=== PATIENT | female | born 1995 | race Hispanic/Latino ===

== ENCOUNTER 2017-02-15 09:46 | Emergency (ER) | payer OTHER ==
[~2017-02-15] VITALS: Ht 157.5 cm; Wt 65.8 kg
[2017-02-15] MEDS ORDERED: KETOROLAC 30 MG/ML VIAL (J1885) IV ONE (12:15)
[2017-02-15] MEDS ORDERED: ONDANSETRON 4MG/2ML VIAL (J2405) IV ONE (12:15)
[2017-02-15] MEDS ORDERED: NS 1,000 ML IV ONE (12:15)
[2017-02-15 12:42] LABS: CONTROL LINE UCG INT CTR LINE PRESENT
[2017-02-15 12:44] LABS: BASO % 0.6 % (0.0-1.0); EOS # 0.3 K/mm3 (0.0-0.50); EOS % 5.2 % (0.0-3.0); LARGE UNSTAINED CELL # 0.1 K/mm3 (0.0-0.4); LARGE UNSTAINED CELL % 1.7 % (0.0-4.0); LYMPH # 1.9 K/mm3 (1.5-6.5); MEAN CORPUSCULAR HEMOGLOBIN 29.8 pg (27.0-33.0); MEAN CORPUSCULAR HGB CONC 32.1 g/dl (32.0-36.5); MEAN CORPUSCULAR VOLUME 92.8 fl (80.0-96.0); MONO # 0.4 K/mm3 (0.0-0.8); MONO % 6.4 % (0.0-5.0); NEUTROPHILS # 2.8 K/mm3 (1.8-7.7); NEUTROPHILS % 52.1 % (36.0-66.0); PLATELET COUNT, AUTOMATED 216 k/mm3 (150-450); WHITE BLOOD COUNT 5.5 K/mm3 (4.0-10.0)
[2017-02-15 13:10] LABS: ALBUMIN 3.6 GM/DL (3.2-5.2); ALBUMIN/GLOBULIN RATIO 0.97 (1.00-1.93); ALKALINE PHOSPHATASE 114 U/L (45-117); ALT/SGPT 29 U/L (12-78); ANION GAP 6 MEQ/L (8-16); AST/SGOT 24 U/L (15-37); BILIRUBIN,DIRECT 0.2 MG/DL (0.0-0.2); BILIRUBIN,TOTAL 0.7 MG/DL (0.2-1.0); BLOOD UREA NITROGEN 12 MG/DL (7-18); CALCIUM LEVEL 8.3 MG/DL (8.5-10.1); CARBON DIOXIDE LEVEL 28 MEQ/L (21-32); CHLORIDE LEVEL 107 MEQ/L (98-107); CREATININE FOR GFR 0.57 MG/DL (0.55-1.02); GLUCOSE, FASTING 84 MG/DL (70-105); POTASSIUM SERUM 3.5 MEQ/L (3.5-5.1); SODIUM LEVEL 141 MEQ/L (136-145); TOTAL PROTEIN 7.3 GM/DL (6.4-8.2)
[2017-02-15] MEDS ORDERED: METOCLOPRAMIDE INJ 10MG/2ML VIAL (J2765) IV ONE (14:00)
[2017-02-15] MEDS ORDERED: ZOFR4TAB3 PO (14:27)
[2017-02-15 14:38] VITALS: BP 111/63
== END 2017-02-15 14:39 | disposition home or self-care (01) ==
LOC: M ED 11:52
DX: E86.0 Dehydration (principal); R10.84 Generalized abdominal pain; R19.7 Diarrhea, unspecified; R11.2 Nausea with vomiting, unspecified; Z90.49 Acquired absence of other specified parts of digestive tract; Z90.89 Acquired absence of other organs; Z98.84 Bariatric surgery status
CPT/HCPCS: 36415; 80048; 80076; 81001; 83690; 84703; 85025; 96374; 96375; 99283; J1885; J2405; J2765

== ENCOUNTER 2017-07-04 20:11 | Emergency (ER) | payer OTHER ==
[~2017-07-04] VITALS: Ht 157.5 cm; Wt 70.5 kg
[~2017-07-04 20:11] MED LIST: ZOFR4TAB3 PO
[2017-07-04] MEDS ORDERED: NEXP1IMP SC (20:33)
[2017-07-04] MEDS ORDERED: NS 1,000 ML IV ONE (21:45)
[2017-07-04] MEDS ORDERED: KETOROLAC 30 MG/ML VIAL (J1885) IV ONE (21:45)
[2017-07-04 22:03] LABS: BASO % 0.5 % (0.0-1.0); EOS # 0.5 10^3/uL (0.0-0.50); EOS % 5.7 % (0.0-3.0); IMMATURE GRANULOCYTE % 0.2 % (0-0); LYMPH # 1.7 10^3/uL (1.5-6.5); LYMPH % 21.4 % (24.0-44.0); MEAN CORPUSCULAR HEMOGLOBIN 29.1 pg (27.0-33.0); MEAN CORPUSCULAR HGB CONC 32.8 g/dl (32.0-36.5); MEAN CORPUSCULAR VOLUME 88.8 fl (80.0-96.0); MONO # 0.6 10^3/uL (0.0-0.8); MONO % 7.4 % (0.0-5.0); NEUTROPHILS # 5.3 10^3/uL (1.8-7.7); NEUTROPHILS % 64.8 % (36.0-66.0); PLATELET COUNT, AUTOMATED 249 10^3/uL (150-450); RED CELL DISTRIBUTION WIDTH 12.8 % (11.5-14.5); WHITE BLOOD COUNT 8.1 10^3/uL (4.0-10.0)
[2017-07-04 22:05] LABS: ADD MORPHOLOGY? NO
[2017-07-04 22:21] LABS: ANION GAP 8 MEQ/L (8-16); BLOOD UREA NITROGEN 10 MG/DL (7-18); CALCIUM LEVEL 8.6 MG/DL (8.5-10.1); CARBON DIOXIDE LEVEL 24 MEQ/L (21-32); CHLORIDE LEVEL 108 MEQ/L (98-107); CREATININE FOR GFR 0.53 MG/DL (0.55-1.02); GLOMERULAR FILTRATION RATE > 60.0 (>60); GLUCOSE, FASTING 88 MG/DL (70-105); POTASSIUM SERUM 3.7 MEQ/L (3.5-5.1); SODIUM LEVEL 140 MEQ/L (136-145)
[2017-07-04 22:22] LABS: CONTROL LINE HCG INT CTR LINE PRESENT
[2017-07-04] MEDS ORDERED: AMOX500C PO (23:07)
[2017-07-04] MEDS ORDERED: AMOXICILLIN 500 MG CAP PO ONE (23:15)
[2017-07-04 23:56] VITALS: BP 112/66
== END 2017-07-04 23:58 | disposition home or self-care (01) ==
LOC: M ED 20:11
DX: J02.0 Streptococcal pharyngitis (principal); Z98.0 Intestinal bypass and anastomosis status; Z79.3 Long term (current) use of hormonal contraceptives
CPT/HCPCS: 80048; 84703; 85025; 87210; 87491; 87591; 87804; 87880; 96374; 99283; J1885

== ENCOUNTER 2017-07-13 18:39 | Emergency (ER) | payer OTHER ==
[~2017-07-13] VITALS: Ht 157.5 cm; Wt 68.3 kg
[~2017-07-13 18:39] MED LIST changes: +AMOX500C PO; +NEXP1IMP SC
[2017-07-13] MEDS ORDERED: NS 1,000 ML IV ONE ×2 (21:00→23:15)
[2017-07-13] MEDS ORDERED: ONDANSETRON 4MG/2ML VIAL (J2405) IV ONE (21:00)
[2017-07-13 21:28] LABS: BASO % 0.3 % (0.0-1.0); EOS # 0.3 10^3/uL (0.0-0.50); EOS % 2.2 % (0.0-3.0); IMMATURE GRANULOCYTE % 0.4 % (0-0); LYMPH # 1.3 10^3/uL (1.5-6.5); LYMPH % 10.6 % (24.0-44.0); MEAN CORPUSCULAR HEMOGLOBIN 28.8 pg (27.0-33.0); MEAN CORPUSCULAR HGB CONC 32.6 g/dl (32.0-36.5); MEAN CORPUSCULAR VOLUME 88.3 fl (80.0-96.0); MONO # 0.9 10^3/uL (0.0-0.8); MONO % 7.6 % (0.0-5.0); NEUTROPHILS # 9.7 10^3/uL (1.8-7.7); NEUTROPHILS % 78.9 % (36.0-66.0); PLATELET COUNT, AUTOMATED 330 10^3/uL (150-450); RED CELL DISTRIBUTION WIDTH 12.7 % (11.5-14.5); WHITE BLOOD COUNT 12.3 10^3/uL (4.0-10.0)
[2017-07-13 21:40] LABS: CONTROL LINE HCG INT CTR LINE PRESENT
[2017-07-13 21:48] LABS: ALBUMIN 3.8 GM/DL (3.2-5.2); ALKALINE PHOSPHATASE 129 U/L (45-117); ALT/SGPT 29 U/L (12-78); ANION GAP 6 MEQ/L (8-16); AST/SGOT 27 U/L (15-37); BILIRUBIN,DIRECT 0.2 MG/DL (0.0-0.2); BILIRUBIN,TOTAL 0.9 MG/DL (0.2-1.0); BLOOD UREA NITROGEN 7 MG/DL (7-18); CALCIUM LEVEL 8.6 MG/DL (8.5-10.1); CARBON DIOXIDE LEVEL 23 MEQ/L (21-32); CHLORIDE LEVEL 110 MEQ/L (98-107); GLOMERULAR FILTRATION RATE > 60.0 (>60); GLUCOSE, FASTING 85 MG/DL (70-105); POTASSIUM SERUM 3.8 MEQ/L (3.5-5.1); SODIUM LEVEL 139 MEQ/L (136-145)
[2017-07-13] MEDS ORDERED: ZOFR4TAB3 PO (23:24)
[2017-07-13 23:39] VITALS: BP 106/65
--- NOTE | 2017-07-14 00:49 | REP ---
Clinical: Nausea and vomiting with abdominal pain. Technique: Upright view of the chest with supine and upright views of the abdomen and pelvis. Findings: Frontal upright view of the chest demonstrates no acute cardiopulmonary process or free air below the diaphragm to suspect pneumoperitoneum. Supine and upright views of the abdomen and pelvis demonstrate nonspecific bowel gas pattern without obstruction or perforation. No organomegaly. No abnormal calcifications. Skeletal structures normal for age. Impression: Nonspecific bowel gas pattern. Signed by Paul Cade MD 07/14/2017 12:41 A
== END 2017-07-13 23:43 | disposition home or self-care (01) ==
LOC: M ED 18:39
DX: K52.9 Noninfective gastroenteritis and colitis, unspecified (principal); F17.210 Nicotine dependence, cigarettes, uncomplicated; Z98.0 Intestinal bypass and anastomosis status; Z98.890 Other specified postprocedural states
CPT/HCPCS: 74022; 80048; 80076; 81001; 83690; 84703; 85025; 87086; 96361; 96374; 99283; J2405

== ENCOUNTER 2019-08-06 21:58 | Inpatient (IN) | payer OTHER, SELFPAY ==
[~2019-08-06] VITALS: Ht 157.5 cm; Wt 66.3 kg
[~2019-08-06 21:58] MED LIST changes: +ZOFR4TAB14 PO; -ZOFR4TAB3 PO
[2019-08-06 23:39] LABS: HEMATOCRIT 31.7 % (36.0-47.0); HEMOGLOBIN 9.1 g/dl (12.0-15.5); MEAN CORPUSCULAR HEMOGLOBIN 21.4 pg (27.0-33.0); MEAN CORPUSCULAR HGB CONC 28.7 g/dl (32.0-36.5); MEAN CORPUSCULAR VOLUME 74.6 fl (80.0-96.0); PLATELET COUNT, AUTOMATED 334 10^3/uL (150-450); RED BLOOD COUNT 4.25 10^6/uL (4.00-5.40); WHITE BLOOD COUNT 7.9 10^3/uL (4.0-10.0)
[2019-08-07 00:04] LABS: AMPHETAMINES LEVEL URINE NEGATIVE (NEGATIVE); BARBITURATES URINE NEGATIVE (NEGATIVE); BENZODIAZEPINES URINE NEGATIVE (NEGATIVE); CANNABINOIDS URINE POSITIVE (NEGATIVE); COCAINE METABOLITE URINE NEGATIVE (NEGATIVE); METHADONE URINE NEGATIVE (NEGATIVE); OPIATES URINE NEGATIVE (NEGATIVE); PHENCYCLIDINE URINE NEGATIVE (NEGATIVE)
[2019-08-07 00:11] LABS: ACETAMINOPHEN LEVEL < 2.0 UG/ML (10.0-30.0); ALBUMIN 3.6 GM/DL (3.2-5.2); ALT/SGPT 30 U/L (12-78); BILIRUBIN,DIRECT 0.2 MG/DL (0.0-0.2); BILIRUBIN,TOTAL 0.8 MG/DL (0.2-1.0); BLOOD UREA NITROGEN 9 MG/DL (7-18); CALCIUM LEVEL 7.8 MG/DL (8.5-10.1); CARBON DIOXIDE LEVEL 24 MEQ/L (21-32); CHLORIDE LEVEL 110 MEQ/L (98-107); CREATININE FOR GFR 0.56 MG/DL (0.55-1.30); ETHYL ALCOHOL (ETHANOL) < 0.003 % (0.000-0.010); GLOMERULAR FILTRATION RATE > 60.0 (>60); GLUCOSE, FASTING 87 MG/DL (70-100); POTASSIUM SERUM 4.1 MEQ/L (3.5-5.1); SALICYLATE LEVEL < 1.7 MG/DL (5.0-30.0); SODIUM LEVEL 140 MEQ/L (136-145); TOTAL PROTEIN 7.4 GM/DL (6.4-8.2)
[2019-08-07 00:12] LABS: HCG, SERUM QUALITATIVE NEGATIVE (NEGATIVE)
[2019-08-07] MEDS ORDERED: METAL LOCK LOOP XX ONE (01:15)
[2019-08-07] MEDS ORDERED: ALPRAZolam 0.5 MG TAB PO ONE (07:45)
[2019-08-07] MEDS ORDERED: MAALOX 30 ML SUSP *UDC PO PRN (12:15)
[2019-08-07] MEDS ORDERED: MOM 30ML SUSPENSION UDC PO PRN (12:15)
[2019-08-07 13:47] VITALS: BP 110/66
[2019-08-07] MEDS: NICOTINE 14 MG/24 HR TRANSDERMAL TD PRN (17:22)
--- NOTE | 2019-08-07 17:28 | HPE ---
DATE OF ADMISSION: 08/07/2019 ATTENDING PHYSICIAN: Willy rocha. This is an inpatient mental health hospitalist-generated history and physical on Thu Stevens, a 24-year-old, admitted with depressive episode, episode of suicidal ideation. PAST MEDICAL HISTORY: Essentially benign. She has a history of psoriasis, used to be on a foaming topical treatment for her scalp in the past. She has chronic low back pain and has seen a chiropractor for this. She was told she has "degenerating disc." No bladder or bowel dysfunction with this. SOCIAL HISTORY: She is unmarried. She has a young son. She smokes both tobacco and marijuana. SURGICAL HISTORY: Appendectomy, cholecystectomy, gastric bypass, and panniculectomy, section (). ALLERGIES: None known. MEDICATIONS: No outpatient medications. REVIEW OF SYSTEMS: Has chronic low back pain. No bowel or bladder dysfunction, no weakness of her legs. Her psoriasis has been mild. She has never used any immune-modulating agents for it. PHYSICAL EXAMINATION: Vital Signs: Per flow sheet. She is alert, conversant, in no distress. Pupils equal, round, and reactive to light. Pharynx is benign. Neck: No masses. Lungs: Clear. Heart: Without murmur. Abdomen: Soft. No masses. No peripheral edema. Minimal healed psoriasis on the elbows and knees. IMPRESSION: 1. Psoriasis. Topical foaming steroid will be ordered, if available on hospital formulary. 2. Back pain, chronic. Recommend heating pad and non-opiate therapy. 3. Depression. Per psychiatry. Hospitalist group is available for any medical problems that develop during the course of the hospitalization.
[2019-08-07] MEDS: traZODone 50 MG TAB PO PRN (23:02)
[2019-08-07] MEDS: ACETAMINOPHEN TAB 650MG DOSE (2X325MG) PO PRN (23:03)
[2019-08-08 06:17] VITALS: BP 103/50
[2019-08-08] MEDS: NICOTINE 14 MG/24 HR TRANSDERMAL TD PRN (09:36)
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
[2019-08-08] MEDS ORDERED: hydrOXYzine 25 MG TAB PO PRN (11:30)
[2019-08-08] MEDS ORDERED: SERTRALINE HCL 25 MG TABLET PO ONE (11:30)
[2019-08-08 15:19] VITALS: BP 114/62
[2019-08-08] MEDS: ACETAMINOPHEN TAB 650MG DOSE (2X325MG) PO PRN (17:04)
[2019-08-08] MEDS: traZODone 50 MG TAB PO PRN (22:52)
[2019-08-09 06:42] VITALS: BP 98/46
[2019-08-09] MEDS: SERTRALINE HCL 25 MG TABLET PO SCH (08:33)
[2019-08-09] MEDS: NICOTINE 14 MG/24 HR TRANSDERMAL TD PRN (08:33)
[2019-08-09] MEDS: ACETAMINOPHEN TAB 650MG DOSE (2X325MG) PO PRN ×2 (08:34→22:32)
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
[2019-08-09] MEDS ORDERED: ONDANSETRON 4 MG TAB (S0181) PO PRN (13:00)
[2019-08-09 18:06] VITALS: BP 128/68
[2019-08-09] MEDS: traZODone 50 MG TAB PO PRN (22:32)
[2019-08-10 06:20] VITALS: BP 120/61
[2019-08-10] MEDS: SERTRALINE HCL 25 MG TABLET PO SCH (08:12)
[2019-08-10] MEDS: ACETAMINOPHEN TAB 650MG DOSE (2X325MG) PO PRN (08:13)
[2019-08-10] MEDS ORDERED: TRAZ-252 PO (09:13)
[2019-08-10] MEDS ORDERED: SERT25TA21 PO (09:13)
[2019-08-10] MEDS ORDERED: HYDR-3363 PO (09:13)
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
== END 2019-08-10 10:20 | disposition home or self-care (01) | DRG 755 ==
LOC: M ED 21:58 → M ED INP 08-07 12:10 → M PSY 08-07 13:44
PROVIDERS: ADMIT Psychiatry & Neurology Psychiatry; ATTEND Psychiatry & Neurology Psychiatry
DX: F43.10 Post-traumatic stress disorder, unspecified (principal); Z91.120 Patient's intentional underdosing of medication regimen due to financial hardship; R45.851 Suicidal ideations; F32.9 Major depressive disorder, single episode, unspecified; F12.10 Cannabis abuse, uncomplicated; L40.9 Psoriasis, unspecified; M54.5 Low back pain; F17.200 Nicotine dependence, unspecified, uncomplicated; T43.596A Underdosing of other antipsychotics and neuroleptics, initial encounter; Z62.810 Personal history of physical and sexual abuse in childhood